=== PATIENT | female | born 1995 | race Caucasian/White ===

== ENCOUNTER 2018-02-23 15:33 | Inpatient (IN) ==
[~2018-02-23 15:33] MED LIST: *HR* Nalbuphine 10 MG/ML AMPUL IVP PRN; Famotidine 20 MG/2 ML VIAL IVP PRN; Metoclopramide 10 MG/2 ML VIAL IVP PRN; Naloxone 0.4 MG/ML INJ IVP PRN
[2018-02-23] MEDS ORDERED: Ringers Solution, Lactated 1,000 ML ONE (15:39)
[2018-02-23] MEDS ORDERED: Ringers Solution, Lactated 1,000 ML IVC SCH (15:45)
[2018-02-23] MEDS ORDERED: Bupivacaine-MPF 0.25% 10 ML VIAL EP ONE (16:09)
[2018-02-23] MEDS ORDERED: *HR* FentaNYL (PF) 100 MCG/2 ML VIAL EP ONE (16:09)
[2018-02-23] MEDS ORDERED: Lidocaine -MPF 1% 5 ML AMPUL ONE (16:11)
[2018-02-23] MEDS ORDERED: Epidural Premix (fent/bupiv) 110 ML EP ONE (16:14)
[2018-02-23] MEDS ORDERED: Epidural Premix (fent/bupiv) 110 ML EP SCH (16:15)
--- NOTE | 2018-02-23 16:19 | Anesthesia Evaluation PreOp ---
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 had a curvy spine)) : Yes Alcohol Use: none Drug use: none Medications and Allergies Vit #108/Iron/FA [ One Tablet] 1 each PO DAILY 02/23/18 [History] Allergy/AdvReac Type Severity Reaction Status Date / Time No Known Allergies Allergy Verified 02/23/18 15:25 - Meds/Allergy Pre-op Review Medications Reviewed: Yes Allergies Reviewed: Yes Beta Blockers on Current Med List: No Anesthesia Exam 121/78, HR 89, RR 14, 97.6F Height: 1.52m Weight: 78kg NPO (# of Hours): solids > 8hrs Pain Scale: 10 Pain Scale Used: Numeric (1 - 10) - HEENT Pupil (Motor): Pupils equal Mallampati: II Teeth: Normal Oral Opening: Greater than 3 - BAND BIAS MACHINE OPERATOR LOC: Oriented BAND BIAS MACHINE OPERATOR Motor: Normal RUE, Normal LUE, Normal RLE, Normal LLE, Normal Face BAND BIAS MACHINE OPERATOR Sensory: Normal: RUE, LUE, RLE, LLE, Face - Cardiac Rhythm: Regular Murmur: None - Pulmonary Breath Sounds: bilateral Clear Respiratory Effort: Symmetrical Anesthesia Assess/Plan ASA Score: 2 Modified Sathish Scale for Level of Consciousness: Anixous, agitated or restless Anesthetic Plan: Regional Autologous Blood: No Monitoring Plan: Standard Monitors Recovery Plan: Other
--- NOTE | 2018-02-23 16:29 | OB/GYN History & Physical ---
Date of Encounter: 02/23/18 Time of Encounter: 16:16 Assessment and Plan (1) 39 weeks gestation of Current visit: Yes Status: Acute Admit for active labor GBS negative Patient may have epidural upon request Anticipate vaginal delivery POC per consult with Dr Gerardo. History of Present Illness Chief complaint: Contractions HPI: Ms. Barksdale is a 23 year old at 39 weeks and 1 day that presents to labor and delivery with c/o contractions that began at 1130 this morning. She states positive movement. She denies headache, vision changes, epigastric pain, leaking of fluid, and vaginal bleeding. She has been seen by the midwives for this and was a transfer of care at 29 weeks from [place]. She was diagnosed with polyhydramnious with negative torch titers earlier in this , but her most recent REAL was 23.56cm on 02/18/18 with a BPP of 8/8. Labs: GBS negative Blood type O- Gc/CL neg RPR neg Hep B neg HIV neg Hep C neg Rubella immune 1st trimester screening neg Past Med Surg Social Fam HX - Past Medical History Medical history: no medical history Psychiatric history: no psych history - Past Surgical History Surgical History: other Additional surgical history: wisdom teeth extraction - Social History Smoking Status: Never smoker Smokeless Tobacco Status: No Alcohol use: none Drug use: none - Family History Father Living Status: Still Living Hx Family Cardiac Disorders: No Hx Family Respiratory Disorders: No Hx Family Cancer: No Hx Family GI Disorders: No Hx Family Genitourinary Disorders: No Hx Family Endocrine Disorder: Yes (DM) Hx Family Musculoskeletal Disorders: No Hx Family Neuromuscular Disorders: No Hx Family Neurologic Disorders: No Hx Family HEENT Disorders: No Hx Family Autoimmune Disorders: No Hx Family Reproductive Disorders: No Hx Family Psychosocial Disorders: No Hx Family Medical Disorders: No Obstetrical History - Pregnancies : 2 Para: 1 Term: 1 : 0 Ab's: 0 Livin Medications and Allergies Vit #108/Iron/FA [ One Tablet] 1 each PO DAILY 02/23/18 [History] Allergy/AdvReac Type Severity Reaction Status Date / Time No Known Allergies Allergy Verified 02/23/18 15:25 Exam - Constitutional Constitutional: well developed, well nourished, average body habitus, moderate distress - HEENT HEENT: Mucus Membranes Moist - Lungs Respiratory exam: CTAB - Cardiovascular Cardiovascular exam: RRR, +S1, +S2 - Abdomen Abdomen: Present: bowel sounds normal, gravid, non tender - Extremities Extremities exam: normal capillary refill, normal inspection, radial pulses pa lpable and symmetrical - Vagina Vagina: Present: normal moisture - Cervix Dilation: 7 Effacement: 100 (BBOW) Station: -1 Results All other labs normal. - VTE Reasons for not Prescribing Prophylaxis: Treatment not Indicated - Low risk for VTE
[2018-02-23 16:30] LABS: Basophils % 0.2 %; Eosinophils % 0.1 %; Hematocrit 38.3 % (35.3-44.9); Hemoglobin 13.2 g/dL (11.5-15.4); Immature Granulocytes % 0.6 % (0-4); Lymphocytes % 9.9 %; Mean Corpuscular HGB Conc 34.5 g/dL (31.6-35.5); Mean Corpuscular Hemoglobin 30.4 pg (28.0-33.3); Mean Corpuscular Volume 88.2 fL (83.0-100.0); Mean Platelet Volume 12.2 fL (9.4-12.4); Monocytes # 0.8 K/mcL (0.0-1.3); Monocytes % 3.9 %; Neutrophils # 17.1 K/mcL (1.6-8.9); Platelet Count 177 K/mcL (140-400); Red Blood Count 4.34 M/mcL (3.82-4.97); Red Cell Distribution Width 12.8 % (11.5-14.5); Segmented Neutrophils % 85.3 %
[2018-02-23] MEDS ORDERED: Oxytocin 20 units/ LR 1000 mL 20 UNIT/1,000 ML BAG IVC ONE ×2 (16:31→21:38)
[2018-02-23 16:41] LABS: Amphetamine Screen,Urine Negative ng/mL (Cutoff=1000); Barbiturate Screen,Urine Negative ng/mL (Cutoff=200); Benzodiazepines Screen,Urine Negative ng/mL (Cutoff=200); Cannabinoid Screen,Urine Negative ng/mL (Cutoff = 50); Cocaine Screen,Urine Negative ng/mL (Cutoff= 300); Opiate Screen,Urine Negative ng/mL (Cutoff=300); Phencyclidine Screen,Urine Negative ng/mL (Cutoff=25)
--- NOTE | 2018-02-23 17:03 | Anesthesia Procedures ---
Date of Encounter: 02/23/18 Time of Encounter: 16:36 Procedures: Anesthesia - Epidural/Spinal Patient ID/Chart reviewed: Yes Patient examined: Yes OB Eval: Gestational age: 39 weeks 1 day OB Eval: : 2 OB Eval: Hx Para: 1 OB Eval: Dilated at (cm): 7 OB Eval: Contractions: Non-stressed pattern Consent Obtained: Yes Supplemental Oxygen: None/Room Air Site Prep: Aseptic Technique, Sterile prep and drape, Povidone-Iodine 1% Patient position: upright Local Anesthetic: Lidocaine 1% Amount of Local Anesthetic used: 3 Touhy Needle Gauge: 18 Touhy Needle Depth (cm): 7 Catheter Depth at Skin (cm): 12 Test Dose (1.5% Lido + Epi): Volume given (mls): 5 Test Dose Result: Negative Loading Dose: 0.25% Marcaine (mls): 5 Loading Dose: Fentanyl (mcg): 100 Loading Dose Administered: Thru Catheter Infusion Med: 0.125% Bupivacaine w/ 2 mcg/ml Fentanyl Infusion Rate (mls/hr): 12 (w/ demand bolus of 5mL q30min PRN) Catheter Secured in Place: Tegaderm, Tape Interspace Used: L3-L4 Loss of Resistance (YEIMY): Yes Blood: No CSF: No Paresthesia: No Procedure: successful on 1st attempt; patient tolerated procedure well; VSS Vitals + FHT's: please see Johana MCCORMICK's electronic records for VS entry
--- NOTE | 2018-02-23 20:50 | OB/GYN Procedure Note ---
Delivery - Delivery Date: 02/23/18 Provider: Nivia Garcia Intrapartum events: none Delivery induction: none Delivery monitor: external FHT, external uterine Anesthesia: epidural Quantitated Blood Loss: 400 - Infant (s) Infant A Delivery Date: 02/23/18 Infant Delivery Time: 20:22 Presentation: vertex Position: OA Route of delivery: Gender: Male Viability: Viable Pounds: 7 Ounces: 14 Weight Gram: 3.575 kg at 1 minute: 8 at 5 mins: 9 Shoulder Dystocia: not encountered Specimens collected: cord blood Placenta: spontaneous Cord: nuchal cord, 3 umbilical vessels, delivered through nuchal - Repair Episiotomy: none Laceration Description: Superficial - Complications Delivery complications: none Delivery comments: Patient progressed to complete and began coached pushing to of viable male infant in the direct OA position. Tight nuchal cord encountered and delivered through. No shoulder dystocia and no meconium encountered. Infant placed on maternal abdomen, warmed, dried and stimulated. Cord double clamped and cut with assistance of FOB after pulsations ceased. Apgars 8 and 9 at 1 and 5 minutes of age respectively. Placenta delivered spontaneously and appears grossly intact; 3 vessel cord. Upon perineal inspection several small hemostatic superficial lacerations noted on the right labia, clitoris, and perineum: left to heal by second intention. EBL 400. Uterus firm and at u/2 after inspection; lochia light and without clots. and mother stable in recovery for [address] Gerardo notified of delivery. - Disposition Mom disposition: stable in LDR [place] disposition: stable in LDR
[2018-02-23] MEDS ORDERED: Mag Hydrox/Al Hydrox/Simeth 30 ML UDC PO PRN (21:38)
[2018-02-23] MEDS ORDERED: Rho Immune Globulin 1,500 UNIT SYRINGE IM PRN (21:38)
[2018-02-23] MEDS ORDERED: Hydrocortisone Rectal 2.5% CRM 28 GM TUBE RC PRN (21:38)
[2018-02-23] MEDS ORDERED: Benzocaine/Menthol 56 GM AEROSOL SPRAY TP PRN (21:38)
[2018-02-23] MEDS ORDERED: Oxytocin 20 units/ LR 1000 mL 20 UNIT/1,000 ML BAG IVC SCH (21:38)
[2018-02-23] MEDS: Ibuprofen 600 MG TABLET PO PRN (22:33)
[2018-02-24] MEDS: Acetaminophen 325 MG TABLET PO PRN ×2 (00:46→08:12)
[2018-02-24] MEDS: Ibuprofen 600 MG TABLET PO PRN ×3 (05:00→21:53)
[2018-02-24] MEDS ORDERED: Prenatal Vit/FA 1 EACH TABLET PO SCH (09:00)
--- NOTE | 2018-02-24 09:18 | Discharge Summary ---
Date of Encounter: 02/24/18 Time of Encounter: 09:16 - Discharge Diagnosis (1) Status post vaginal delivery Priority: Primary Status: Acute Comments: 23y/o s/p at 39w1d. Meeting PP milestones. is going well. Anticipate discharge today. - Discharge Medications Prescriptions: Ibuprofen [Motrin] 600 mg PO Q6HR PRN #60 tablet PRN Reason: Cramping Docusate [Colace] 100 mg PO BID #30 cap Hydrocortisone Rectal CRM [Proctosol-Hc] 1 appl RC QID PRN #1 tube PRN Reason: Itching/Rectal soreness Home Medications: Vit #108/Iron/FA [ One Tablet] 1 each PO DAILY 02/23/18 [History] Benzocaine/Menthol Diana [Dermoplast Diana] 1 appl TP QID PRN aerosol 02/24/18 [Rx] Docusate [Colace] 100 mg PO BID #30 cap 02/24/18 [Rx] Hydrocortisone Rectal CRM [Proctosol-Hc] 1 appl RC QID PRN #1 tube 02/24/18 [Rx] Ibuprofen [Motrin] 600 mg PO Q6HR PRN #60 tablet 02/24/18 [Rx] Allergies/Adverse Reactions: Allergy/AdvReac Type Severity Reaction Status Date / Time No Known Allergies Allergy Verified 02/23/18 15:25 Data Procedures and tests throughout hospitalization: Laboratory Tests 02/23/18 02/23/18 02/23/18 15:07 15:07 20:42 WBC 20.0 H RBC 4.34 Hgb 13.2 Hct 38.3 MCV 88.2 MCH 30.4 MCHC 34.5 RDW 12.8 Plt Count 177 MPV 12.2 Immature Gran % 0.6 Seg Neutrophils % 85.3 Lymphocytes % 9.9 Monocytes % 3.9 Eosinophils % 0.1 Basophils % 0.2 Neutrophils # 17.1 H Lymphocytes # 2.0 Monocytes # 0.8 Eosinophils # 0.0 Basophils # 0.0 Urine Opiates Screen Negative Ur Barbiturates Screen Negative Ur Phencyclidine Scrn Negative Ur Amphetamines Screen Negative U Benzodiazepines Scrn Negative Urine Cocaine Screen Negative U Marijuana (THC) Screen Negative Ur Drug Screen Interp See Below Baby's Blood Type O RH NEGATIVE Mother's Blood Type O RH NEGATIVE Labs on day of discharge: Labs from last 24 hours 02/23/18 02/23/18 02/23/18 20:42 15:07 15:07 WBC 20.0 H RBC 4.34 Hgb 13.2 Hct 38.3 MCV 88.2 MCH 30.4 MCHC 34.5 RDW 12.8 Plt Count 177 MPV 12.2 Immature Gran % 0.6 Seg Neutrophils % 85.3 Lymphocytes % 9.9 Monocytes % 3.9 Eosinophils % 0.1 Basophils % 0.2 Neutrophils # 17.1 H Lymphocytes # 2.0 Monocytes # 0.8 Eosinophils # 0.0 Basophils # 0.0 Urine Opiates Screen Negative Ur Barbiturates Screen Negative Ur Phencyclidine Scrn Negative Ur Amphetamines Screen Negative U Benzodiazepines Scrn Negative Urine Cocaine Screen Negative U Marijuana (THC) Screen Negative Ur Drug Screen Interp See Below Baby's Blood Type O RH NEGATIVE Mother's Blood Type O RH NEGATIVE Date of admission: 02/23/18 15:33 Primary care physician: Zach Fry DO Consults: 02/23/18 21:38 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 [CONS] Routine Comment: Vaginal delivery, consult needed Discharging clinician: Elis Veloz Anticipated date of discharge: 02/24/18 - Patient Status Disposition: Home, Self-Care Condition: Good Functional capacity at discharge: independent ambulation Overall status at discharge: patient is progressing back to baseline - Discharge Instructions Follow Up With: Zach Fry DO [Primary Care Provider] - Nivia Garcia, REBECCA [Advanced Practice Nurse] - - Diet and Activity Activity: increase activity as tolerated Diet: advance to your usual diet Hospital Course Reason for admission: active labor Delivery: Episiotomy: none Laceration: none Other procedures: none complications: none Discharge diagnosis: IUP at term delivered baby: male Hospital course: - Delivery Date: 02/23/18 Provider: Nivia Garcia Intrapartum events: none Delivery induction: none Delivery monitor: external FHT, external uterine Anesthesia: epidural Quantitated Blood Loss: 400 - Infant (s) A Infant Delivery Date: 02/23/18 Infant Delivery Time: 20:22 Presentation: vertex Position: OA Route of delivery: Gender: Male Viability: Viable Pounds: 7 Ounces: 14 Weight Gram: 3.575 kg at 1 minute: 8 at 5 mins: 9 Shoulder Dystocia: not encountered Specimens collected: cord blood Placenta: spontaneous Cord: nuchal cord, 3 umbilical vessels, delivered through nuchal - Repair Episiotomy: none Laceration Description: Superficial - Complications Delivery complications: none Delivery comments: Patient progressed to complete and began coached pushing to of viable male infant in the direct OA position. Tight nuchal cord encountered and delivered through. No shoulder dystocia and no meconium encountered. Infant placed on maternal abdomen, warmed, dried and stimulated. Cord double clamped and cut with assistance of FOB after pulsations ceased. Apgars 8 and 9 at 1 and 5 minutes of age respectively. Placenta delivered spontaneously and appears grossly intact; 3 vessel cord. Upon perineal inspection several small hemostatic superficial lacerations noted on the right labia, clitoris, and perineum: left to heal by second intention. EBL 400. Uterus firm and at u/2 after inspection; lochia light and without clots. and mother stable in recovery for [address] Gerardo notified of delivery. - Disposition Mom disposition: stable in LDR [place] disposition: stable in LDR Time Attestation: Total time spent providing and/or coordinating discharge services: Exam - Constitutional Vitals: Temp Pulse Resp BP Pulse Ox 98 F 16 16 106/78 97 02/24/18 07:54 02/24/18 07:54 02/24/18 07:54 02/24/18 07:54 02/24/18 04:00 General appearance IM: A&O X 3, no acute distress - Respiratory Respiratory exam: Present: CTAB - Cardiovascular Cardiovascular exam IM: Present: RRR, +S1, +S2 - GI/Abdominal GI/Abdominal exam IM: normal bowel sounds - Uterine Tone: Firm Uterus Position: At Umbilicus - Extremities Exam Extremities exam IM: Present: pedal edema (1+). Absent: calf tenderness - Neurological Exam Neurological exam: alert, oriented X3
[2018-02-24 17:37] VITALS: BP 114/78
== END 2018-02-24 22:41 | disposition home or self-care (01) | DRG 560 ==
LOC: 1NENULAB → 1NENUOBS 23:03
PROVIDERS: ADMIT Advanced Practice Midwife; ATTEND Advanced Practice Midwife